=== PATIENT | female | born 1945 | race Caucasian/White ===

== ENCOUNTER 2025-01-17 20:18 | Emergency (ER) | payer MEDICARE, OTHER ==
[~2025-01-17] VITALS: Ht 165.1 cm; Wt 73.0 kg
[2025-01-17 20:23] VITALS: TEMP 37.1; O2SAT 98
[2025-01-17 21:17] VITALS: BP 135/75; PULSE 70; RESP 18
[2025-01-17] MEDS: LIDOCAINE 5% PATCH TOP SCH (21:17)
[2025-01-17] MEDS: HYDROCODONE/ACETAMINOPHEN 5/325MG TABLET PO ONE (21:17)
[2025-01-17] MEDS ORDERED: NAPR-1176 MT (23:07)
[2025-01-17] MEDS ORDERED: LIDO700A15 TP (23:07)
== END 2025-01-17 23:42 | disposition home or self-care (01) ==
LOC: ER 20:18
DX: G89.29 Other chronic pain (principal); E78.00 Pure hypercholesterolemia, unspecified; I10 Essential (primary) hypertension; M16.11 Unilateral primary osteoarthritis, right hip; M51.372 Other intervertebral disc degeneration, lumbosacral region with discogenic back pain and lower extremity pain; Z79.1 Long term (current) use of non-steroidal anti-inflammatories (NSAID)
CPT/HCPCS: 73503; 99283